=== PATIENT | female | born 1955 | race Caucasian/White ===

== ENCOUNTER 2018-07-02 21:13 | Emergency (ER) | payer SELFPAY ==
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
[2018-07-02 23:46] VITALS: BP 159/81
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
== END 2018-07-02 23:45 | disposition home or self-care (01) ==
LOC: ED 21:13
DX: S09.90XA Unspecified injury of head, initial encounter (principal); V43.62XA Car passenger injured in collision with other type car in traffic accident, initial encounter; Y92.9 Unspecified place or not applicable; Z87.891 Personal history of nicotine dependence; R51 Headache; M54.2 Cervicalgia; M25.511 Pain in right shoulder
CPT/HCPCS: 70450; 72125; 99282